=== PATIENT | female | born 1950 | race Hispanic/Latino ===

== ENCOUNTER → 2020-06-02 | Outpatient (CLI) | payer OTHER ==
[~2020-06-02] MED LIST: REGADENOSON 0.4 MG/5 ML PF SYG IVP SCH
== END | disposition home or self-care (01) ==
LOC: SHCH 07:59
PROVIDERS: ATTEND Internal Medicine Cardiovascular Disease
DX: R07.89 Other chest pain (principal)
CPT/HCPCS: 78452; 93017; 96374; A9500 ×2; J2785

== ENCOUNTER → 2021-03-19 | Outpatient (CLI) | payer OTHER, MEDICARE | END | disposition home or self-care (01) | LOC: RAH 15:07 | PROVIDERS: ATTEND Otolaryngology Plastic Surgery within the Head & Neck | DX: H90.3 Sensorineural hearing loss, bilateral (principal) | CPT/HCPCS: 70480 ==

== ENCOUNTER 2023-12-24 15:19 | Emergency (ER) | payer OTHER, MEDICARE ==
[~2023-12-24] VITALS: Ht 154.9 cm; Wt 88.9 kg
[2023-12-24] MEDS: KETOROLAC 60 MG VIAL (30MG/ML) IM ONE (16:37)
[2023-12-24] MEDS: MORPHINE 2 MG SYG IM ONE (16:37)
[2023-12-24] MEDS ORDERED: NAPR-1196 PO (17:46)
[2023-12-24 17:59] VITALS: BP 141/46; PULSE 49; RESP 18; O2SAT 97
== END 2023-12-24 18:01 | disposition home or self-care (01) ==
LOC: EDH 15:19
DX: S20.219A Contusion of unspecified front wall of thorax, initial encounter (principal); F03.90 Unspecified dementia, unspecified severity, without behavioral disturbance, psychotic disturbance, mood disturbance, and anxiety; I10 Essential (primary) hypertension; E03.9 Hypothyroidism, unspecified; F32.A Depression, unspecified; Z90.710 Acquired absence of both cervix and uterus; W18.30XA Fall on same level, unspecified, initial encounter; Y93.89 Activity, other specified; Y92.89 Other specified places as the place of occurrence of the external cause; Y99.8 Other external cause status
CPT/HCPCS: 99285; 71250; 96372 ×2; J2270; J1885